=== PATIENT | female | born 1955 | race African-American/Black ===

== ENCOUNTER 2016-07-27 07:26 | Observation (INO) | payer MEDICAID ==
--- NOTE | 2016-07-27 08:48 | EDPRACDOC ---
- History of Present Illness HPI: HX OF CAD; STENT IN 2014; HERE WITH CP AND SHOB; WORSE WITH EXERTION. RELIEVED BY REST. NO RECENT STRESS OR CATH. NEW T WAVE INVERSION. <DexterNomi Dill - Last Filed: 07/27/16 11:30> - General Information Information Source: Patient Mode Of Arrival: Car - History of Present Illness Symptoms Started: days HPI: C/o productive cough (white), chest congestion and tightness, and swollen feet x 3 days. Chest tightness does not radiate. Denies fever, sob, N/V/D, sore throat. body aches, changes in urine or BM. Med hx= CAD with stent placed in 2014, asthma, HTN, DM, aortic valve disorder. +smoker. Symptoms: Reports: Cough Relevant History Of: Reports: Asthma Shortness of Breath: None Cough Frequency: Intermittent Cough Description: Reports: Productive Rhinorrhea: Reports: Clear Ear Symptoms: Reports: None Associated Signs and Symptoms: Reports: Cough <Chucky Price - Last Filed: 07/27/16 18:21> - General Information Stated Complaint: FOOT SWOLLEN/ CONGESTION Time Seen by Provider: 07/27/16 08:15 Home Medications: Home Medications Aripiprazole [Abilify] 15 mg PO DAILY 05/13/12 Latanoprost 1 drop OU HS 05/13/12 Levothyroxine [Synthroid, Levoxyl] 25 mcg PO DAILY 05/13/12 Omeprazole 40 mg PO DAILY 05/13/12 Cetirizine HCl 10 mg PO DAILY PRN 11/10/13 Aspirin [Aspirin EC] 81 mg PO DAILY 09/11/15 Cholecalciferol (Vitamin D3) [D3 Dots] 2,000 unit PO DAILY 09/11/15 Clopidogrel Bisulfate [Plavix] 75 mg PO DAILY 09/11/15 Losartan/Hydrochlorothiazide [Hyzaar 50-12.5 Tablet] 1 tab PO DAILY 09/11/15 [place]-3 Fatty Acids/Fish Oil [Fish Oil 1,000 mg Capsule] 2 cap PO BID 09/11/15 Atorvastatin Calcium [Lipitor] 80 mg PO HS 07/27/16 Montelukast Sodium [Singulair] 10 mg PO DAILY 07/27/16 Allergies/Adverse Reactions: Allergies Allergy/AdvReac Type Severity Reaction Status Date / Time No Known Allergies Allergy Verified 07/27/16 15:28 ED Past Medical History - History Reviewed Yes Nurses notes reviewed and agree except as marked - Patient Medical History Cardiac History: Reports: Hypertension, Syncope Musculoskeletal History: Reports: Arthritis Psychological History: Denies: Depression Surgical History: Denies: Hysterectomy - Social Medical History Smoking Status: Heavy tobacco smoker (5 or more cigarettes/day or daily pipe/ cigar) <Chucky Price - Last Filed: 07/27/16 18:21> EDM Review of Systems - Review of Systems ROS Negative Except as Marked: Yes All systems reviewed and were negative except as marked Respiratory: Cough Cardiovascular: Edema (bilat feet) <Chucky Price - Last Filed: 07/27/16 18:21> - Physical Exam Last recorded Vital Signs: Last Vital Signs Temp 98.8 F 07/27/16 08:03 Pulse 64 07/27/16 09:53 Resp 22 07/27/16 09:53 BP 166/74 07/27/16 09:53 Pulse Ox 97 07/27/16 09:53 Oxygen Pulse Oxygen Saturation 97 O2 Device Room Air Oxygen Flow Rate Fraction of Inspired Oxygen ( FIO2) <Nomi Renteria - Last Filed: 07/27/16 11:30> - Physical Exam Constitutional: No apparent distress, Alert Oriented to: Time, Person, Place Last recorded Vital Signs: Last Vital Signs Temp 98.8 F 07/27/16 08:03 Pulse 62 07/27/16 08:31 Resp 18 07/27/16 08:31 BP 212/84 H 07/27/16 08:31 Pulse Ox 97 07/27/16 08:31 Oxygen Pulse Oxygen Saturation 97 O2 Device Oxygen Flow Rate Fraction of Inspired Oxygen ( FIO2) - HEENT Head: Normal Eye Exam: negative: Conjunctival Injection, Scleral Icterus Oropharynx: negative: Drooling TMJ: Normal Nose: No Symptoms Reported Neck: Normal - Respiratory/Cardiovascular Respiratory: Rhonchi Cardiovascular: Normal - GI Auscultation: Normal Palpation: Normal Tenderness: Non tender - Musculoskeletal Back: Normal Extremities: Pedal Edema (bilat feet), Pedal Pulse, Radial Pulse - Integumentary Skin: Normal - Neurologic Mood Description: Normal Thought: Coherent Perception: Normal <Chucky Price - Last Filed: 07/27/16 18:21> - Results 07/27/16 09:15 07/27/16 09:15 WBC 11.6 xk/uL (3.8-10.8) H 07/27/16 09:15 RBC 3.71 xM/uL (4.20-5.40) L 07/27/16 09:15 Hgb 11.7 g/dL (12.0-16.0) L 07/27/16 09:15 Hct 35.4 % (36-47) L 07/27/16 09:15 MCV 95 fL (81-99) 07/27/16 09:15 MCH 31.4 pg (27-32) 07/27/16 09:15 MCHC 32.9 g/dl (33-36) L 07/27/16 09:15 RDW 15.4 % (11.5-14.5) H 07/27/16 09:15 Plt Count 281 xk/uL (130-400) 07/27/16 09:15 MPV 7.9 fL (7.4-10.4) 07/27/16 09:15 Neut % (Auto) 67.5 % (45-76) 07/27/16 09:15 Lymph % (Auto) 24.3 % (17-44) 07/27/16 09:15 [place] % (Auto) 6.8 % (3-10) 07/27/16 09:15 Eos % (Auto) 0.7 % (0-5) 07/27/16 09:15 Baso % (Auto) 0.7 % (0-2) 07/27/16 09:15 Absolute Neuts (auto) 7.77 xk/uL (1.7-8.2) 07/27/16 09:15 Absolute Lymphs (auto) 2.78 xk/uL (0.65-4.75) 07/27/16 09:15 Sodium 144 mEq/L (137-146) 07/27/16 09:15 Potassium 4.3 mEq/L (3.5-5.1) 07/27/16 09:15 Chloride 107 mEq/L (98-107) 07/27/16 09:15 Carbon Dioxide 32 mMOL/L (22-33) 07/27/16 09:15 Anion Gap 9 mEq/L (8-16) 07/27/16 09:15 BUN 16 MG/DL (7-17) 07/27/16 09:15 Creatinine 0.90 MG/DL (0.52-1.04) 07/27/16 09:15 Estimated GFR (MDRD) > 60 mL/min (>=60) 07/27/16 09:15 Glucose 93 MG/DL (70-99) 07/27/16 09:15 Calculated Osmolality 278 MOs/Kg (270-290) 07/27/16 09:15 Calcium 9.7 MG/DL (8.4-10.2) 07/27/16 09:15 Corrected Calcium 10.2 MG/DL (8.4-10.2) 07/27/16 09:15 Total Bilirubin 0.5 MG/DL (0.2-1.3) 07/27/16 09:15 AST 36 IU/L (14-36) 07/27/16 09:15 ALT 38 IU/L (9-52) 07/27/16 09:15 Alkaline Phosphatase 59 IU/L (55-165) 07/27/16 09:15 Troponin I < 0.01 ng/mL (<.04) 07/27/16 09:15 Bhw-N-Mdjcgnpzpcf Pept 1300 pg/mL (0-900) H 07/27/16 09:15 Total Protein 6.4 G/DL (6.3-8.2) 07/27/16 09:15 Albumin 3.5 G/DL (3.5-5.0) 07/27/16 09:15 Lab Results 07/27/16 07/27/16 09:15 09:15 WBC 11.6 H RBC 3.71 L Hgb 11.7 L Hct 35.4 L MCV 95 MCH 31.4 MCHC 32.9 L RDW 15.4 H Plt Count 281 MPV 7.9 Neut % (Auto) 67.5 Lymph % (Auto) 24.3 [place] % (Auto) 6.8 Eos % (Auto) 0.7 Baso % (Auto) 0.7 Absolute Neuts (auto) 7.77 Absolute Lymphs (auto) 2.78 Sodium 144 Potassium 4.3 Chloride 107 Carbon Dioxide 32 Anion Gap 9 BUN 16 Creatinine 0.90 Estimated GFR (MDRD) > 60 Glucose 93 Calculated Osmolality 278 Calcium 9.7 Corrected Calcium 10.2 Total Bilirubin 0.5 AST 36 ALT 38 Alkaline Phosphatase 59 Troponin I < 0.01 Tix-P-Aaewugtineu Pept 1300 H Total Protein 6.4 Albumin 3.5 <Nomi Renteria - Last Filed: 07/27/16 11:30> - Results 07/27/16 09:15 07/27/16 09:15 - EKG EKG #1 EKG Time: 08:43 -: Yes EKG interpreted by me Rate: bpm: 60 Rhythm: NSR (8:43) Block: RBBB ST: Ischemia Comments: inferolateral T wave inversions Comparison: 02/09/16 (no inferolateral t wave inversions) - Diagnostic Imaging Chest Image interpreted by: Radiologist EXAM: CHEST 2 VIEW COMPARISON: 02/09/2016 FINDINGS: Cardiomediastinal silhouette is stable. No acute infiltrate or pleural effusion. No pulmonary edema. Bony thorax is unremarkable. IMPRESSION: No active cardiopulmonary disease. Electronically Signed By: Craig Tellez M.D. On: 07/27/2016 09:03 <Chucky Price - Last Filed: 07/27/16 18:21> - Departure Disposition: Admit IP To This Hospital Decision to Admit Time: 11:13 (SANG) Decision to admit date: 07/27/16 Decision to admit: from ED <Nomi Renteria - Last Filed: 07/27/16 11:30> - Departure Disposition: Home Education/Counseling Given To: Patient Education/Counseling Given Regarding: Diagnosis, Treatment, Prognosis, Follow Up <Chucky rPice - Last Filed: 07/27/16 18:21> - Departure Condition: Stable Final Diagnosis: ANGINA, ACS, EKG CHANGES
--- NOTE | 2016-07-27 09:06 | DIRPT ---
CLINICAL DATA: Shortness of breath, cough EXAM: CHEST 2 VIEW COMPARISON: 02/09/2016 FINDINGS: Cardiomediastinal silhouette is stable. No acute infiltrate or pleural effusion. No pulmonary edema. Bony thorax is unremarkable. IMPRESSION: No active cardiopulmonary disease. Electronically Signed By: Craig Tellez M.D. On: 07/27/2016 09:03
[2016-07-27 09:24] LABS: AUTOMATED BASOPHIL 0.7 % (0-2); AUTOMATED EOSINOPHIL 0.7 % (0-5); AUTOMATED LYMPH 24.3 % (17-44); AUTOMATED MONOCYTE 6.8 % (3-10); AUTOMATED NEUTROPHIL 67.5 % (45-76); MPV 7.9 fL (7.4-10.4)
[2016-07-27 09:36] LABS: BLOOD UREA NITROGEN 16 MG/DL (7-17); CALC CORRECTED 10.2 MG/DL (8.4-10.2); CALCIUM 9.7 MG/DL (8.4-10.2); CALCULATED OSMOLALITY 278 MOs/Kg (270-290); CHLORIDE 107 mEq/L (98-107); GLUCOSE 93 MG/DL (70-99); SODIUM LEVEL 144 mEq/L (137-146); TOTAL PROTEIN 6.4 G/DL (6.3-8.2)
--- NOTE | 2016-07-27 11:27 | PCM.CARDCO ---
Consultation Date: 07/27/16 Requesting Physician: Nomi Renteria [employer] Agent: Paulino Klein Consult Reason: Chest Pain - History of Present Illness Patient is a 61 years old woman with past medical history significant for longstanding hypertension, diabetes, dyslipidemia, smoking, coronary artery disease in 2014 she had stent to circumflex artery. She presented to the hospital with chief complain fever chills starting Saturday which was 3 days ago she also complained of having persistent chest heaviness since Saturday. There is also some shortness of breath cough with yellowish sputum. She also noted some swelling of lower extremities. My evaluation was called to address issue of chest pain as well as abnormal electrocardiogram. Her ability to exercise is limited because of shortness of breath that she gets easily. - Past Medical and Surgical History Cardiac History: Reports: Coronary Artery Disease (PTCA and stenting of the circumflex artery in 2014.), Hypertension, Cardiac Catheterization, Syncope Musculoskeletal History: Reports: Arthritis Psychological History: Denies: Depression Past Surgical History: Denies: Hysterectomy Allergies No Known Allergies Allergy (Verified 07/27/16 08:03) Home Medications Aripiprazole [Abilify] 15 mg PO DAILY 05/13/12 Latanoprost 1 drop OU HS 05/13/12 Levothyroxine [Synthroid, Levoxyl] 25 mcg PO DAILY 05/13/12 Omeprazole 40 mg PO DAILY 05/13/12 Cetirizine HCl 10 mg PO DAILY PRN 11/10/13 Aspirin [Aspirin EC] 81 mg PO DAILY 09/11/15 Cholecalciferol (Vitamin D3) [D3 Dots] 2,000 unit PO DAILY 09/11/15 Clopidogrel Bisulfate [Plavix] 75 mg PO DAILY 09/11/15 Losartan/Hydrochlorothiazide [Hyzaar 50-12.5 Tablet] 1 tab PO DAILY 09/11/15 [place]-3 Fatty Acids/Fish Oil [Fish Oil 1,000 mg Capsule] 2 cap PO DAILY Atorvastatin Calcium [Lipitor] 80 mg PO HS 07/27/16 Meloxicam [Mobic] 15 mg PO DAILY PRN 07/27/16 Montelukast Sodium [Singulair] 10 mg PO HS 07/27/16 - Social History Travel Outside of [place] in the Last 3 Months?: No Smoking Status: Heavy tobacco smoker (5 or more cigarettes/day or daily pipe/ cigar) - Physical Exam Constitutional: No apparent distress, Alert Oriented to: Time, Person, Place Exam: Last Vital Signs Temp 98.8 F 07/27/16 08:03 Pulse 69 07/27/16 11:06 Resp 20 07/27/16 11:06 BP 135/62 07/27/16 11:06 Pulse Ox 96 07/27/16 11:06 Intake & Output 07/26/16 07/27/16 07/27/16 23:59 07:59 15:59 Patient's weight 70.76 kg - HEENT Head: Normal Eye: negative: Conjunctival Injection, Scleral Icterus Oropharynx: negative: Drooling TMJ: Normal Nose: No Symptoms Reported - Respiratory/Cardiovascular Respiratory: Rhonchi - GI Auscultation: Normal Palpation: Normal Tenderness: Non tender - Musculoskeletal Back: Normal Extremities: Pedal Edema (bilat feet), Pedal Pulse, Radial Pulse - Integumentary Skin: Normal - Neurologic Mood Description: Normal Thought: Coherent Perception: Normal - Other Exam Other Exam Findings: General Appearance: Well developed. Well nourished. In no acute distress. Lungs: Chest was not overinflated. Bilateral rhonchi. Cardiovascular: Jugular Venous Distention: JVD not increased. Heart Rate And Rhythm: Normal. Heart Sounds: Normal. Murmurs: No murmurs were heard. Carotid Arteries: Carotid pulses were normal. No bruit in the carotid artery. Edema: Not present. Lower extremities pulses normal (including femoral popliteal and dorsalis pedis) . Minimal swelling. Musculoskeletal System: General/bilateral: No cyanosis of the fingers. Neurological: Oriented to time, place, and person. Nails: No clubbing of the fingernails. - Lab Results Laboratory Tests 07/27/16 07/27/16 09:15 09:15 WBC 11.6 H RBC 3.71 L Hgb 11.7 L Hct 35.4 L MCV 95 MCH 31.4 MCHC 32.9 L RDW 15.4 H Plt Count 281 MPV 7.9 Neut % (Auto) 67.5 Lymph % (Auto) 24.3 [place] % (Auto) 6.8 Eos % (Auto) 0.7 Baso % (Auto) 0.7 Absolute Neuts (auto) 7.77 Absolute Lymphs (auto) 2.78 Sodium 144 Potassium 4.3 Chloride 107 Carbon Dioxide 32 Anion Gap 9 BUN 16 Creatinine 0.90 Estimated GFR (MDRD) > 60 Glucose 93 Calculated Osmolality 278 Calcium 9.7 Corrected Calcium 10.2 Total Bilirubin 0.5 AST 36 ALT 38 Alkaline Phosphatase 59 Troponin I < 0.01 Cfn-E-Gpmanilvcvf Pept 1300 H Total Protein 6.4 Albumin 3.5 - Diagnostic Findings Electrocardiogram showed normal sinus rhythm, normal P interval, right bundle branch block, T inversion in lead V3 to V6 as well as inferior leads. - Assessment/Plan (1) Atypical chest pain R07.89 - OTHER CHEST PAIN Acute Present on Admission: Yes Comment: It is a continue sensation since Saturday that been going on for 3 day Not aggravated by exercise not relieved by rest. The truth is that she does have changes on the electrocardiogram however biochemical markers are normal. Obviously she need to be admitted she need to be put on aspirin Lovenox. Will continue monitoring her cardiac enzymes. I will also ask her to have an echocardiogram done to check left ventricle ejection fraction. (2) Coronary artery disease I25.10 - ATHSCL HEART DISEASE OF [place] CORONARY ARTERY W/O ANG PCTRS Chronic Present on Admission: Yes lime artery N A Comment: Symptoms of very atypical however appropriate course of action would be to collect cardiac enzymes as well as troponin I. Will put her on appropriate medication and watch for signs and symptoms of myocardial infarction. Future recommendation will be made based on results of that observation. (3) Diabetes mellitus E11.9 - TYPE 2 DIABETES MELLITUS WITHOUT COMPLICATIONS Chronic Present on Admission: Yes D D D D P D D L C Comment: It will be managed by Internal Medicine team. (4) Dyslipidemia E78.5 - HYPERLIPIDEMIA, UNSPECIFIED Acute Comment: She is on statin I will continue. (5) Essential hypertension I10 - ESSENTIAL (PRIMARY) HYPERTENSION Acute Comment: Will be control with all medications. (6) Smoking F17.200 - NICOTINE DEPENDENCE, UNSPECIFIED, UNCOMPLICATED Acute Comment: Obviously she must quit. I had a long discussion with her regarding that issue. Plan: Lady presented to the hospital with atypical chest pain as well as some shortness of breath. Her electrocardiogram does have some new changes. She be admitted to the hospital rule out echocardiogram will be done and then decision will be made regarding evaluation of her coronary arteries. She may required stress test before going home. On top of that she complained of having some chills and fever which happened last Nay she does have a lot of rhonchi I am worried there is some infectious process going on as well.
[2016-07-27] MEDS ORDERED: Enoxaparin 1 mg per kg per dose SQ ONE (11:28)
[2016-07-27] MEDS ORDERED: NITROGLYCERINE 2 % OINTMENT PACK TOP ONE (11:28)
[2016-07-27] MEDS ORDERED: ASPIRIN 325 MG TAB PO ONE (11:28)
[2016-07-27] MEDS ORDERED: METOPROLOL TARTRATE 25 MG TAB PO ONE (11:28)
[2016-07-27] MEDS ORDERED: CEFTRIAXONE 1 GM in D5W 100 ML IV ONE (11:38)
[2016-07-27] MEDS ORDERED: ENOXAPARIN 80 MG/0.8 ML PFS SQ ONE (12:00)
[2016-07-27] MEDS ORDERED: CETIRIZINE HCL 10 MG TAB PO PRN (12:27)
[2016-07-27] MEDS ORDERED: NITROGLYCERINE 0.4 MG TAB SL PRN (12:29)
--- NOTE | 2016-07-27 12:35 | HISTPHYS ---
- Chief Complaint pt reports increased bilateral foot swellling with cough and congestion, with white thick sputum - History of Present Illness Patient is a 61 years old woman with past medical history significant for longstanding hypertension, diabetes, dyslipidemia, smoking, coronary artery disease in 2014 she had stent to circumflex artery. She presented to the hospital with chief complain fever chills starting Saturday which was 3 days ago she also complained of having persistent chest heaviness since Saturday. There is also some shortness of breath cough with yellowish sputum. She also noted some swelling of lower extremities. Evaluation was called to address issue of chest pain as well as abnormal electrocardiogram. Her ability to exercise is limited because of shortness of breath that she gets easily. She was seen in the emergency department in consultation by Dr. DOMÍNGUEZ who felt that while she may have some chest discomfort and she does have an abnormal EKG she would benefit from observation to rule out myocardial infarction but she would also need treatment for her bacterial bronchitis. I was asked to admit the patient. C/o productive cough (white), chest congestion and tightness, and swollen feet x 3 days. Chest tightness does not radiate. Denies fever, sob, N/V/D, sore throat. body aches, changes in urine or BM. Med hx= CAD with stent placed in 2014, asthma, HTN, DM, aortic valve disorder. +smoker. Symptoms: Reports: Cough Relevant History Of: Reports: Asthma Shortness of Breath: None Cough Frequency: Intermittent Cough Description: Reports: Productive Rhinorrhea: Reports: Clear Ear Symptoms: Reports: None Associated Signs and Symptoms: Reports: Cough - Medical History Cardiac History: Reports: Hypertension, Syncope Respiratory History: Reports: Bronchitis Musculoskeletal History: Reports: Arthritis Psychological History: Denies: Depression - Surgical History Denies: Hysterectomy - Medictions/Allergies Allergies No Known Allergies Allergy (Verified 07/27/16 08:03) Current Medication List: Reviewed Home Medications Aripiprazole [Abilify] 15 mg PO DAILY 05/13/12 Latanoprost 1 drop OU HS 05/13/12 Levothyroxine [Synthroid, Levoxyl] 25 mcg PO DAILY 05/13/12 Omeprazole 40 mg PO DAILY 05/13/12 Cetirizine HCl 10 mg PO DAILY PRN 11/10/13 Aspirin [Aspirin EC] 81 mg PO DAILY 03/13/16 Cholecalciferol (Vitamin D3) [D3 Dots] 2,000 unit PO DAILY 09/11/15 Clopidogrel Bisulfate [Plavix] 75 mg PO DAILY 09/11/15 Losartan/Hydrochlorothiazide [Hyzaar 50-12.5 Tablet] 1 tab PO DAILY 09/11/15 [place]-3 Fatty Acids/Fish Oil [Fish Oil 1,000 mg Capsule] 2 cap PO DAILY Atorvastatin Calcium [Lipitor] 80 mg PO HS 07/27/16 Meloxicam [Mobic] 15 mg PO DAILY PRN 07/27/16 Montelukast Sodium [Singulair] 10 mg PO HS 07/27/16 - Family History Reports: No Significant History - Social History Travel Outside of [place] in the Last 3 Months?: No Smoking Status: Heavy tobacco smoker (5 or more cigarettes/day or daily pipe/ cigar) Social History: Denies: Alcohol Use - Review of Systems Constitutional: Chills, Fever, Fatigue Eyes: No Symptoms Reported (No blurry vision, visual changes, eye pain, or eye redness.) Ears: No Symptoms Reported (No ear pain or discharge) Nose: No Symptoms Reported (No nasal discharge/congestion or bleeding) Mouth: No Symptoms Reported (No oropharyngeal lesions or erythema) Respiratory: Cough, Shortness of Breath, Dyspnea. negative: Hemoptysis, Pleurisy Cardiovascular: Chest Pain. negative: Orthopnea, Palpitations, PND, Syncope Gastrointestinal: No Symptoms Reported (No abdominal pain, nausea, vomiting, diarrhea, constipation, or bloody stool.) Genitourinary: No Symptoms Reported (No dysuria or hematuria.) Neurological: No Symptoms Reported (No headache, dizziness, seizures, or focal weakness.) Musculoskeletal:: No Symptoms Reported Integumentary: No Symptoms Reported (no rashes or lesions) Allergic/Immunologic: No Symptoms Reported (no rashes or lesions) Hematologic: No Symptoms Reported (No chronic anemia, bleeding, or easy bruising.), Other (Lymphatics- no lymph node swelling or pain.) Endocrine: No Symptoms Reported (No thyroid issues, polyuria, or polydipsia.) Psychiatric: No Symptoms Reported (Fully oriented, with normal and appropriate affect.) - Physical Exam Vital Signs: Initial Vitals Temperature 98.8 F 07/27/16 08:03 Pulse Rate 64 07/27/16 08:03 Respiratory Rate 18 07/27/16 08:03 Blood Pressure 186/88 H 07/27/16 08:03 Pulse Oxygen Saturation 96 07/27/16 08:03 Constitutional: No apparent distress, Alert, Well nourished, Well appearing. negative: Confused, Distress Oriented to: Time, Person, Place - HEENT Head: Normal (normocephalic, atraumatic.), Other (No cervical lymphadenopathy. No supraclavicular lymphadenopathy. Neck: No palpable mass, supple , trachea midline.) Eye: Normal (pupils equal, reactive to light, and round; EOMI, Sclera white) Oropharynx: Normal (Pharynx: Moist without exudate,Gums-no swelling, No oropharyngeal lesions or erythema, Mucous membranes are dry.) Nose: No Symptoms Reported (septum midline, Nares patent, without discharge or bleeding.) Respiratory: Diminished, Rhonchi. negative: Rales, Wheezes Cardiovascular: Normal (RRR , Normal S1, S2. No murmurs, rubs, or gallops. PMI non-displaced. Carotids: no carotid bruits. No bradycardia or tachycardia. DP pulses 2+ bilaterally.) - GI Auscultation: Normal (normal active sounds) Palpation: Normal (Soft,non distended,nontender. No hepatosplenomegaly.) Tenderness: Non tender (No rebound or guarding) Chaudhari's Sign: Negative - Musculoskeletal Back: Normal (Non-Tender) Extremities: Normal (Normal tone, DP pulses 2+ bilaterally, No cyanosis or edema bilaterally, FROM bilaterally.) - Integumentary Skin: Normal (Clean, dry, and intact. No rashes. No lesions.) Lymphatics: Normal (No cervical lymphadenopathy. No supraclavicular lymphadenopathy.) - Neurologic Memory Impaired: Normal Motor Function: Normal (Motor 5/5 throughout.Normal tone, Pulses 2+ No cyanosis or edema, FROM) Cranial Nerve: Normal (CN II-XII intact sensation, strength 5/5) Cerebellar: Normal (Babinski: toes downgoing bilaterally. Intact Finger to nose. Sensory grossly intact to light touch. Intact rapid alternating movements bilaterally. No pronator drift.) Mood Description: Normal (Fully oriented. Normal and appropriate affect.) Perception: Normal (Normal and appropriate affect.) - Focused CV Perfusion Exam Vital Signs: Last Vital Signs Temp 98.8 F 07/27/16 08:03 Pulse 72 07/27/16 12:31 Resp 18 07/27/16 12:31 BP 156/81 07/27/16 12:31 Pulse Ox 96 07/27/16 12:31 - Diagnostic Findings EKG shows normal sinus rhythm with normal P interval right bundle-branch block T -wave inversion in V3 to V6 as well as inferior leads. Personally viewed by me. CHEST 2 VIEW COMPARISON: 02/09/2016 FINDINGS: Cardiomediastinal silhouette is stable. No acute infiltrate or pleural effusion. No pulmonary edema. Bony thorax is unremarkable. IMPRESSION: No active cardiopulmonary disease. Electronically Signed By: Craig Tellez M.D. On: 07/27/2016 09:03 - Assessment (1) Acute bacterial bronchitis J20.8 - ACUTE BRONCHITIS DUE TO OTHER SPECIFIED ORGANISMS; B96.89 - OTH BACTERIAL AGENTS THE CAUSE OF DISEASES CLASSD [id number] Acute Present on Admission: Yes Patient be admitted into observation status will start Augmentin 875 p.o. twice daily and monitor her respiratory status closely. Will also add Mucinex. (2) Atypical chest pain R07.89 - OTHER CHEST PAIN Acute Present on Admission: Yes Chest pain certainly is atypical in the sensation has been present since Saturday. He does not get aggravated by exercise. It is not relieved by rest. Given changes on the EKG with normal biological markers observation is called for. Will continue aspirin and Lovenox monitor cavity act enzymes and determine need for stress testing in the near future. (3) Coronary artery disease I25.10 - ATHSCL HEART DISEASE OF [place] CORONARY ARTERY W/O ANG PCTRS Chronic Qualifiers: Coronary Disease-Associated Artery/Lesion type: [place] artery [place] vs. transplanted heart: [place] heart Associated angina: with unstable angina Qualified Code(s): I25.110 - Atherosclerotic heart disease of [place] coronary artery with unstable angina pectoris Rule out for myocardial infarction follow serial enzymes and EKGs. (4) Diabetes mellitus E11.9 - TYPE 2 DIABETES MELLITUS WITHOUT COMPLICATIONS Chronic Present on Admission: Yes Qualifiers: Diabetes mellitus type: type 2 Diabetes mellitus complication status: with circulatory complication Diabetes mellitus complication detail: with other circulatory complications Diabetic retinopathy severity: D Proliferative retinopathy type: P Diabetes mellitus macular edema: D Diabetes mellitus medical terminologist insulin use: with jail use Laterality: L Chronic kidney disease stage: C Qualified Code(s): E11.59 - Type 2 diabetes mellitus with other circulatory complications; Z79.4 - manager long term care (current) use of insulin Continue home care. (5) Dyslipidemia E78.5 - HYPERLIPIDEMIA, UNSPECIFIED Chronic Present on Admission: Yes Continue home medication regimen and monitor closely check lipid profile in a.m.. (6) Smoking F17.200 - NICOTINE DEPENDENCE, UNSPECIFIED, UNCOMPLICATED Chronic Present on Admission: Yes Patient is an active smoker. (7) Tobacco abuse Z72.0 - TOBACCO USE Chronic Present on Admission: Yes Smoking cessation counseling for less than 6 minutes. - Plan Observation status, rule out myocardial infarction, determine need for stress test in near future. Case Care Discussed with: Patient, Family Total Time: 55 minutes Critical Care: No Couseling Time (>50% in counseling/coordination): No
[2016-07-27] MEDS ORDERED: Enoxaparin Treatment Dose per Pharmacy SQ SCH (13:00)
[2016-07-27] MEDS ORDERED: Pharmacy Order Set Alert SCH (13:00)
[2016-07-27] MEDS ORDERED: LATANOPROST 0.005% OPHTH SOLN 2.5 ML OU SCH (13:00)
[2016-07-27] MEDS ORDERED: AMOXICILLIN/CLAVULANATE 875 MG TAB PO ONE (13:00)
[2016-07-27] MEDS: METOPROLOL TARTRATE 25 MG TAB PO SCH ×2 (14:00→21:10)
[2016-07-27] MEDS ORDERED: FUROSEMIDE 40 MG/4 ML VIAL IV ONE (16:57)
[2016-07-27] MEDS ORDERED: Vaccine Screening Complete SCH (17:00)
[2016-07-27] MEDS: AMOXICILLIN/CLAVULANATE 875 MG TAB PO SCH (17:14)
[2016-07-27] MEDS: MONTELUKAST SODIUM 10 MG TAB PO SCH (21:10)
[2016-07-27] MEDS: ATORVASTATIN 80 MG TAB PO SCH (21:10)
[2016-07-27] MEDS: LATANOPROST 0.005% OPHTH SOLN 2.5 ML OU SCH (21:11)
[2016-07-27] MEDS: ENOXAPARIN 80 MG/0.8 ML PFS SQ SCH (21:11)
[2016-07-27] MEDS ORDERED: ENOXAPARIN 40 MG/0.4 ML PFS SQ SCH (23:00)
[2016-07-28 03:41] LABS: LDL (calc.) 82.2 MG/DL (<100); VLDL (calc.) 36.8 MG/DL (5-40)
[2016-07-28] MEDS: PANTOPRAZOLE 40 MG TAB PO SCH (04:37)
[2016-07-28] MEDS ORDERED: MELOXICAM 7.5 MG TAB PO PRN (08:00)
[2016-07-28] MEDS ORDERED: SODIUM CHLORIDE 0.9% 10 ML FLUSH FLUSH ONE (08:00)
[2016-07-28] MEDS: METOPROLOL TARTRATE 25 MG TAB PO SCH ×2 (08:40→20:24)
[2016-07-28] MEDS ORDERED: LOSARTAN KCL/HCTZ 50-12.5 TAB PO SCH (09:00)
[2016-07-28] MEDS ORDERED: PERFLUTREN LIPID MICROSPHERE 1.5 ML VIAL IV ONE (10:00)
--- NOTE | 2016-07-28 10:23 | PCM.CARD ---
- Subjective Reason for visit: Follow up chest pain Denies having chest pain but coughs a lot. No shortness of breath. Vital Signs: Last Vital Signs Temp 98.2 F 07/28/16 08:23 Pulse 61 07/28/16 08:23 Resp 17 07/28/16 08:23 BP 160/72 07/28/16 08:23 Pulse Ox 98 07/28/16 08:23 PE: General Appearance: Well developed. Well nourished. In no acute distress. Lungs: Chest was not overinflated. Clear to auscultation. Few rhonchi bilaterally. Cardiovascular: Jugular Venous Distention: JVD not increased. Heart Rate And Rhythm: Normal. Heart Sounds: Normal. Murmurs: No murmurs were heard. Carotid Arteries: Carotid pulses were normal. No bruit in the carotid artery. Edema: Not present. Lower extremities pulses normal (including femoral popliteal and dorsalis pedis) . Musculoskeletal System: General/bilateral: No cyanosis of the fingers. Neurological: Oriented to time, place, and person. Nails: No clubbing of the fingernails. Lab/DI Results Reviewed: Laboratory Results - last 24 hr 07/27/16 07/28/16 16:10 02:41 Glucose 102 H Troponin I < 0.01 Triglycerides 184 H Cholesterol 167 LDL Cholesterol, Calc 82.2 VLDL Cholesterol, Calc 36.8 HDL Cholesterol 48.0 Cholesterol/HDL Ratio 3.5 - Assessment/Plan (1) Atypical chest pain Acute R07.89 - OTHER CHEST PAIN Present on Admission: Yes Comment/Plan: Denies having any now. So far biochemical markers are normal. Worrisome finding on her electrocardiogram she does have diffuse symmetrical T inversion in inferior lateral leads. I will try to see effect in find some all EKG in my office. I would like to compare to see those changes are new or old. She did have a problem with circumflex artery for an angioplasty of this artery. (2) Coronary artery disease Chronic I25.10 - ATHSCL HEART DISEASE OF [place] CORONARY ARTERY W/O ANG PCTRS Present on Admission: Yes [place] artery [place] heart with unstable angina I25.110 - Atherosclerotic heart disease of [place] coronary artery with unstable angina pectoris Comment/Plan: Discussion as above on appropriate medication will continue. She may required stress test before getting out of the hospital however with her amount of cough she is having now I can't imagine her lying still on the table to have a stress test done. Will wait until she improves from respiratory point of view. (3) Diabetes mellitus Chronic E11.9 - TYPE 2 DIABETES MELLITUS WITHOUT COMPLICATIONS Present on Admission: Yes type 2 with circulatory complication with other circulatory complications D P D with usp use L C E11.59 - Type 2 diabetes mellitus with other circulatory complications; Z79.4 - truck terminal manager (current) use of insulin Comment/Plan: Follow up by Internal Medicine team. (4) Dyslipidemia Chronic E78.5 - HYPERLIPIDEMIA, UNSPECIFIED Present on Admission: Yes Comment/Plan: On appropriate medications with reasonably controlled cholesterol. (5) Essential hypertension Acute I10 - ESSENTIAL (PRIMARY) HYPERTENSION Comment/Plan: Still not adequately controlled. Will add NAHID-inhibitor to her medical regimen. (6) Smoking Chronic F17.200 - NICOTINE DEPENDENCE, UNSPECIFIED, UNCOMPLICATED Present on Admission: Yes Comment/Plan: Obviously a problem she needs to quit. - Plan Lady with coronary artery disease in history, atypical chest pain but does have some changes on the electrocardiogram I will try to review her record my office to see however her prior electrocardiogram look like she does have symmetrical T inversion in lateral leads.
[2016-07-28] MEDS ORDERED: LOSARTAN POTASSIUM 50 MG TAB PO ONE (10:32)
[2016-07-28] MEDS ORDERED: LISINOPRIL 2.5 MG TAB PO SCH (11:00)
[2016-07-28] MEDS: DOBUTamine 500,000 MCG/250 ML RTU IV ONE (12:15)
[2016-07-28] MEDS: ARIPIPRAZOLE 10 MG TAB PO SCH (12:35)
[2016-07-28] MEDS: AMOXICILLIN/CLAVULANATE 875 MG TAB PO SCH ×2 (12:36→17:43)
[2016-07-28] MEDS: LEVOTHYROXINE 25 MCG (0.025 MG) TAB PO SCH (12:36)
[2016-07-28] MEDS: CLOPIDOGREL 75 MG TAB PO SCH (12:36)
[2016-07-28] MEDS: ENOXAPARIN 80 MG/0.8 ML PFS SQ SCH ×2 (12:37→20:27)
[2016-07-28] MEDS: OMEGA-3-ACID ETHYL ESTERS 1000 MG CAP PO SCH (12:37)
[2016-07-28] MEDS: CHOLECALCIFEROL 1000 UNITS TAB PO SCH (12:37)
[2016-07-28] MEDS ORDERED: TUSSIONEX 5 ML ORAL SYRINGE PO SCH (13:00)
--- NOTE | 2016-07-28 14:24 | GENMEDPROG ---
Subjective Note: 61-year-old female admitted to our facility due to congestion cough and pains in chest. She has significant amount of rhonchi and is felt to have bacterial bronchitis. Notes Reviewed: Yes Events from last night noted and discussed with Clinical Staff Currently: Reports: Cough, Wheezing, [place], SOB. Denies: Abdominal Pain, Fever/ Chills DVT Prophylaxis: Yes - Physical Examination Vital Signs and I&O: Last Vital Signs Temp 98.1 F 07/28/16 11:53 Pulse 58 L 07/28/16 11:53 Resp 18 07/28/16 11:53 BP 160/74 07/28/16 11:53 Pulse Ox 98 07/28/16 11:53 Oxygen Pulse Oxygen Saturation 98 O2 Device Room Air Oxygen Flow Rate Fraction of Inspired Oxygen ( FIO2) Intake & Output 07/25/16 07/26/16 07/27/16 07/28/16 23:59 23:59 23:59 23:59 Intake Total 530 240 Output Total 2250 1300 Balance -1720 -1060 Patient's weight 74.021 kg 74.48 kg General: Alert, Oriented x3, No acute distress, Well appearing, Well nourished Lymphatics: Normal (No lymph node swelling or pain.) Respiratory: Rhonchi. negative: Accessory Muscle Use, Rales, Retractions, Tachypnea, Wheezes, Excursion Cardiovascular: Regular rate and rhythm (No bradycardia or tachycardia), Normal S1, No Gallops,Rubs/Murmurs, Normal S2, Good Pedal Pulses (DP pulses 2+ bilaterally) GI: Normal bowel sounds (normal active sounds), Soft (non-distended), Non tender , No hepatospenomegaly, No masses Extremities/Musculoskeletal: Normal pulses (DP pulses 2+ bilaterally) Skin: Warm,Dry and Intact, No rashes, No significant lesion Neurological: Strength at 5/5 X4 ext (Motor 5/5 throughout.), Normal tone, Cranial nerves 3-12 NL ( 2-12 grossly intact.) Lab/DI/Studies Reviewed: Abnormal Lab Results 07/28/16 02:41 Glucose 102 H Triglycerides 184 H - Assessment (1) Acute bacterial bronchitis Acute J20.8 - ACUTE BRONCHITIS DUE TO OTHER SPECIFIED ORGANISMS; B96.89 - OTH BACTERIAL AGENTS THE CAUSE OF DISEASES CLASSD ELSWHR Comment/Plan: Patient be admitted into observation status will start Augmentin 875 p.o. twice daily and monitor her respiratory status closely. Will also add Mucinex. Add Tussionex as well (2) Atypical chest pain Acute R07.89 - OTHER CHEST PAIN Comment/Plan: Chest pain certainly is atypical in the sensation has been present since Saturday. SHe does not get aggravated by exercise. It is not relieved by rest. Given changes on the EKG with normal biological markers observation is called for. Will continue aspirin and Lovenox monitor cavity act enzymes and plan stress testing prior to discharge. (3) Coronary artery disease Chronic I25.10 - ATHSCL HEART DISEASE OF [place] CORONARY ARTERY W/O ANG PCTRS Qualifiers: Coronary Disease-Associated Artery/Lesion type: [place] artery [place] vs. transplanted heart: [place] heart Associated angina: with unstable angina Qualified Code(s): I25.110 - Atherosclerotic heart disease of [place] coronary artery with unstable angina pectoris Comment/Plan: Rule out for myocardial infarction follow serial enzymes and EKGs. 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 (5) Dyslipidemia Chronic E78.5 - HYPERLIPIDEMIA, UNSPECIFIED Comment/Plan: Continue home medication regimen and monitor closely check lipid profile in a.m.. (6) Smoking Chronic F17.200 - NICOTINE DEPENDENCE, UNSPECIFIED, UNCOMPLICATED Comment/ Plan: Patient is an active smoker. (7) Tobacco abuse Chronic Z72.0 - TOBACCO USE Comment/Plan: Smoking cessation counseling for less than 6 minutes. - Plan Observation status, rule out myocardial infarction, determine need for stress test in near future. Disposition Plan: Hopefully home soon Case Care Discussed with: Patient, Nursing Staff Education/Counseling Given To: Patient Education/Counseling Given Regarding: Diagnosis, Treatment, Prognosis, Follow Up , Disposition Plan Total Time: 45 minutes
[2016-07-28] MEDS: GUAIFENESIN-DEXTROMETHORPHAN LA TAB PO SCH ×2 (15:42→20:24)
[2016-07-28] MEDS: MONTELUKAST SODIUM 10 MG TAB PO SCH (20:24)
[2016-07-28] MEDS: ATORVASTATIN 80 MG TAB PO SCH (20:24)
[2016-07-28] MEDS: LATANOPROST 0.005% OPHTH SOLN 2.5 ML OU SCH (20:26)
[2016-07-28] MEDS: TUSSIONEX 5 ML ORAL SYRINGE PO SCH (20:36)
[2016-07-29 04:46] VITALS: BMI 29.1
[2016-07-29] MEDS: PANTOPRAZOLE 40 MG TAB PO SCH (04:54)
[2016-07-29 07:37] LABS: AUTOMATED BASOPHIL 0.3 % (0-2); AUTOMATED EOSINOPHIL 0.8 % (0-5); AUTOMATED MONOCYTE 8.3 % (3-10); AUTOMATED NEUTROPHIL 63.6 % (45-76)
[2016-07-29 07:58] LABS: BLOOD UREA NITROGEN 18 MG/DL (7-17); CALCIUM 9.8 MG/DL (8.4-10.2); CALCULATED OSMOLALITY 275 MOs/Kg (270-290); CHLORIDE 101 mEq/L (98-107); GLUCOSE 98 MG/DL (70-99); SODIUM LEVEL 142 mEq/L (137-146)
[2016-07-29] MEDS ORDERED: HYDROCHLOROTHIAZIDE 12.5 MG CAP PO SCH (09:00)
[2016-07-29] MEDS ORDERED: LOSARTAN POTASSIUM 50 MG TAB PO SCH (09:00)
[2016-07-29] MEDS: PERFLUTREN LIPID MICROSPHERE 1.5 ML VIAL IV ONE ×2 (09:17→10:41)
[2016-07-29] MEDS: DOBUTamine 500,000 MCG/250 ML RTU IV ONE ×4 (09:25→09:35)
--- NOTE | 2016-07-29 09:54 | PCM.CARD ---
- Subjective Reason for visit: Follow-up atypical chest pain, abnormal electrocardiogram Doing well, wants to go home. Much less cough today. Vital Signs: Last Vital Signs Temp 98.0 F 07/29/16 04:00 Pulse 53 L 07/29/16 07:40 Resp 18 07/29/16 04:00 BP 145/67 07/29/16 04:00 Pulse Ox 94 07/29/16 04:00 PE: General Appearance: Well developed. Well nourished. In no acute distress. Lungs: Chest was not overinflated. Clear to auscultation. Few rhonchi. Cardiovascular: Jugular Venous Distention: JVD not increased. Heart Rate And Rhythm: Normal. Heart Sounds: Normal. Murmurs: No murmurs were heard. Carotid Arteries: Carotid pulses were normal. No bruit in the carotid artery. Edema: Not present. Lower extremities pulses normal (including femoral popliteal and dorsalis pedis) . Musculoskeletal System: General/bilateral: No cyanosis of the fingers. Neurological: Oriented to time, place, and person. Nails: No clubbing of the fingernails. Lab/DI Results Reviewed: Laboratory Results - last 24 hr 07/29/16 07/29/16 07:16 07:16 WBC 10.4 RBC 4.07 L Hgb 13.2 D Hct 39.0 MCV 96 MCH 32.4 H MCHC 33.8 RDW 15.3 H Plt Count 296 MPV 8.0 Neut % (Auto) 63.6 Lymph % (Auto) 27.0 [place] % (Auto) 8.3 Eos % (Auto) 0.8 Baso % (Auto) 0.3 Absolute Neuts (auto) 6.55 Absolute Lymphs (auto) 2.81 Sodium 142 Potassium 4.2 Chloride 101 Carbon Dioxide 33 Anion Gap 12 BUN 18 H Creatinine 0.90 Estimated GFR (MDRD) > 60 Glucose 98 Calculated Osmolality 275 Calcium 9.8 Magnesium 1.80 - Assessment/Plan (1) Atypical chest pain Acute R07.89 - OTHER CHEST PAIN Present on Admission: Yes Comment/Plan: Stress dobutamine echo done today showed no evidence of ischemia. She does have some degree of apical hypertrophy. I think this is what responsible for changes on the electrocardiogram. The [place] at this point will be to managing her blood pressure best we can. Will follow her up in the office. There is no arrhythmias identified on the telemetry. (2) Coronary artery disease Chronic I25.10 - ATHSCL HEART DISEASE OF [place] CORONARY ARTERY W/O ANG PCTRS Present on Admission: Yes [place] artery [place] heart with unstable angina I25.110 - Atherosclerotic heart disease of [place] coronary artery with unstable angina pectoris Comment/Plan: Again stress test done today was negative. Will continue present management. The [place] is risk factor modifications. 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 (4) Dyslipidemia Chronic E78.5 - HYPERLIPIDEMIA, UNSPECIFIED Present on Admission: Yes Comment/Plan: Continue with atorvastatin. (5) Essential hypertension Acute I10 - ESSENTIAL (PRIMARY) HYPERTENSION Comment/Plan: Blood pressure appears to be reasonably controlled. Continue present management. (6) Smoking Chronic F17.200 - NICOTINE DEPENDENCE, UNSPECIFIED, UNCOMPLICATED Present on Admission: Yes Comment/Plan: Obviously she must quit. - Plan Patient came with atypical chest pain. Dobutamine stress echo done today showed no evidence of ischemia. She does have some degree of apical hypertrophy. I think that what was responsible for changes on the electrocardiogram. Will follow her up in the office.
--- NOTE | 2016-07-29 10:35 | PCM.DCS92 ---
- Final/Secondary Discharge Diagnosis (1) Acute bacterial bronchitis Acute J20.8 - ACUTE BRONCHITIS DUE TO OTHER SPECIFIED ORGANISMS; B96.89 - OTH BACTERIAL AGENTS THE CAUSE OF DISEASES CLASSD ELSWHR Present on Admission: Yes Comment: Patient be admitted into observation status will start Augmentin 875 p.o. twice daily and monitor her respiratory status closely. Will also add Mucinex. Add Tussionex as well (2) Atypical chest pain Acute R07.89 - OTHER CHEST PAIN Present on Admission: Yes Comment: Chest pain certainly is atypical in the sensation has been present since Saturday. SHe does not get aggravated by exercise. It is not relieved by rest. Given changes on the EKG with normal biological markers observation is called for. Will continue aspirin and Lovenox monitor cavity act enzymes and plan stress testing prior to discharge. (3) Coronary artery disease Chronic I25.10 - ATHSCL HEART DISEASE OF [place] CORONARY ARTERY W/O ANG PCTRS Present on Admission: Yes [place] artery [place] heart with unstable angina I25.110 - Atherosclerotic heart disease of [place] coronary artery with unstable angina pectoris Comment: Rule out for myocardial infarction follow serial enzymes and EKGs. 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 (5) Dyslipidemia Chronic E78.5 - HYPERLIPIDEMIA, UNSPECIFIED Present on Admission: Yes Comment: Continue home medication regimen and monitor closely check lipid profile in a.m.. (6) Smoking Chronic F17.200 - NICOTINE DEPENDENCE, UNSPECIFIED, UNCOMPLICATED Present on Admission: Yes Comment: Patient is an active smoker. (7) Tobacco abuse Chronic Z72.0 - TOBACCO USE Present on Admission: Yes Comment: Smoking cessation counseling for less than 6 minutes. Discharge Disposition: Home Discharge Condition: Improved Cognitive Discharge Status: Unimpaired Fuctional Discharge Status: Independent Physician Follow up/Referrals: Francisco Duarte MD [Primary Care Provider] - One Week Home Medications / New Prescriptions: New Amoxicillin/Clavulanate [place]. [Augmentin] 875 mg PO BIDWM #10 tablet Metoprolol Tartrate 25 mg PO BID #60 tablet Continue Levothyroxine [Synthroid, Levoxyl] 25 mcg PO DAILY Omeprazole 40 mg PO DAILY Aripiprazole [Abilify] 15 mg PO DAILY Latanoprost 1 drop OU HS Losartan/Hydrochlorothiazide [Hyzaar 50-12.5 Tablet] 1 tab PO DAILY Clopidogrel Bisulfate [Plavix] 75 mg PO DAILY Cholecalciferol (Vitamin D3) [D3 Dots] 2,000 unit PO DAILY Aspirin [Aspirin EC] 81 mg PO DAILY [place]-3 Fatty Acids/Fish Oil [Fish Oil 1,000 mg Capsule] 2 cap PO BID Montelukast Sodium [Singulair] 10 mg PO DAILY Atorvastatin Calcium [Lipitor] 80 mg PO HS Discontinued Cetirizine HCl 10 mg PO DAILY PRN PRN Reason: ALLERGIES Laboratory Results - last 24 hr 07/29/16 07/29/16 07:16 07:16 WBC 10.4 RBC 4.07 L Hgb 13.2 D Hct 39.0 MCV 96 MCH 32.4 H MCHC 33.8 RDW 15.3 H Plt Count 296 MPV 8.0 Neut % (Auto) 63.6 Lymph % (Auto) 27.0 [place] % (Auto) 8.3 Eos % (Auto) 0.8 Baso % (Auto) 0.3 Absolute Neuts (auto) 6.55 Absolute Lymphs (auto) 2.81 Sodium 142 Potassium 4.2 Chloride 101 Carbon Dioxide 33 Anion Gap 12 BUN 18 H Creatinine 0.90 Estimated GFR (MDRD) > 60 Glucose 98 Calculated Osmolality 275 Calcium 9.8 Magnesium 1.80 O2 Device: Room Air Additional Instructions: Follow up with primary care for bronchitis. Return to ED for any new or worsening symptoms. Diet at Discharge: Heart Healthy, Low Salt Activity: No Restrictions, Limited, No Heavy Lifting Call Office For: Worsening Symptoms, Fever over 100.5, Pain Uncontrolled By Meds Discontinue use of:: Alcohol, All Illegal Substances, All Types of Tobacco - DC Summary Notes HPI/Notes: Patient is a 61 years old woman with past medical history significant for longstanding hypertension, diabetes, dyslipidemia, smoking, coronary artery disease in 2014 she had stent to circumflex artery. She presented to the hospital with chief complain fever chills starting Saturday which was 3 days ago she also complained of having persistent chest heaviness since Saturday. There is also some shortness of breath cough with yellowish sputum. She also noted some swelling of lower extremities. My evaluation was called to address issue of chest pain as well as abnormal electrocardiogram. Her ability to exercise is limited because of shortness of breath that she gets easily. Hospital Course Note:: Discharge summary on patient named MORTEZA JORDAN [place] [facility]16 by Edith Godinez MD. Date of discharge is []. 61-year-old female admitted to our facility with acute bacterial bronchitis and chest pains. She was admitted to the hospital treated for bronchitis with antibiotics Mucinex and Tussionex. She has improved significantly. She underwent stress testing and found to have a negative dobutamine stress echo today. At this point she has reached maximum benefit of hospitalization. She is stable for discharge home. Total Time: 45 min Code: 32504 (>30min.) - Physical Exam Vital Signs: Last Vital Signs Temp 98.0 F 07/29/16 04:00 Pulse 53 L 07/29/16 07:40 Resp 18 07/29/16 04:00 BP 145/67 07/29/16 04:00 Pulse Ox 94 07/29/16 04:00 Oxygen Pulse Oxygen Saturation 94 O2 Device Room Air Oxygen Flow Rate Fraction of Inspired Oxygen ( FIO2) Constitutional: No apparent distress, Alert Oriented to: Time, Person, Place - HEENT Head: Normal Eye: negative: Conjunctival Injection, Scleral Icterus Oropharynx: negative: Drooling TMJ: Normal Nose: No Symptoms Reported - Respiratory/Cardiovascular Respiratory: Rhonchi. negative: Accessory Muscle Use, Rales, Retractions, Tachypnea, Wheezes, Excursion Cardiovascular: Normal (RRR , Normal S1, S2. No murmurs, rubs, or gallops. PMI non-displaced. Carotids: no carotid bruits. No bradycardia or tachycardia. DP pulses 2+ bilaterally.) - GI Auscultation: Normal Palpation: Normal Tenderness: Non tender - Musculoskeletal Back: Normal Extremities: Pedal Edema (bilat feet), Pedal Pulse, Radial Pulse - Integumentary Lymphatics: Normal (No lymph node swelling or pain.) - Neurologic Mood Description: Normal Thought: Coherent Perception: Normal - Other Exam Other Exam Findings: Laboratory Results - last 24 hr 07/29/16 07/29/16 07:16 07:16 WBC 10.4 RBC 4.07 L Hgb 13.2 D Hct 39.0 MCV 96 MCH 32.4 H MCHC 33.8 RDW 15.3 H Plt Count 296 MPV 8.0 Neut % (Auto) 63.6 Lymph % (Auto) 27.0 [place] % (Auto) 8.3 Eos % (Auto) 0.8 Baso % (Auto) 0.3 Absolute Neuts (auto) 6.55 Absolute Lymphs (auto) 2.81 Sodium 142 Potassium 4.2 Chloride 101 Carbon Dioxide 33 Anion Gap 12 BUN 18 H Creatinine 0.90 Estimated GFR (MDRD) > 60 Glucose 98 Calculated Osmolality 275 Calcium 9.8 Magnesium 1.80
[2016-07-29] MEDS: ENOXAPARIN 80 MG/0.8 ML PFS SQ SCH (10:42)
[2016-07-29] MEDS: TUSSIONEX 5 ML ORAL SYRINGE PO SCH (10:43)
[2016-07-29] MEDS: CLOPIDOGREL 75 MG TAB PO SCH (10:43)
[2016-07-29] MEDS: ARIPIPRAZOLE 10 MG TAB PO SCH (10:43)
[2016-07-29] MEDS: METOPROLOL TARTRATE 25 MG TAB PO SCH (10:43)
[2016-07-29] MEDS: OMEGA-3-ACID ETHYL ESTERS 1000 MG CAP PO SCH (10:46)
[2016-07-29] MEDS: AMOXICILLIN/CLAVULANATE 875 MG TAB PO SCH (10:46)
[2016-07-29] MEDS: CHOLECALCIFEROL 1000 UNITS TAB PO SCH (10:47)
[2016-07-29] MEDS: LEVOTHYROXINE 25 MCG (0.025 MG) TAB PO SCH (10:47)
[2016-07-29] MEDS: GUAIFENESIN-DEXTROMETHORPHAN LA TAB PO SCH (10:47)
[2016-07-29 10:48] VITALS: BP 130/58; PULSE 64; TEMP 98.1
--- NOTE | 2016-07-29 10:54 | CAPUECHO2 ---
INDICATION: CHEST PAIN HEIGHT: 160.0 cm (5 ft 3.0 in) WEIGHT: 70.8 kg (156.0 lbs) BP: 134/70 BSA: 1.658666 m FINDINGS ------- Protocol:The patient received intravenous dobutamine beginning at 10 mcg/kg/min, increasing to 20mcg /kg/min and 40mcg/kg/min in 3 minute stages. Heart rate and blood pressure:Max Heart Rate: 118 bpm % of Max Predicted Heart Rate: 75% Rest Hear t Rate: 57 bpm Rest BP: 134/70 mmhg Max BP: 171/60 mmhg Mets Achieved:1.00 Target HR: 133 bpm Reason for stopping:The test was stopped at the patient's request. Exercise tolerance:Pt did not exercise. ELECTROCARDIOGRAM: Resting ECG:Sinus rhythm, RBBB, T inversion on multiple leads. Post exercise ECG:In response to stress, the ECG showed no diagnostic ST-T wave changes, T inversion normalized. Hemodynamic response:There were normal blood pressure and heart rate responses to stress. ECHOCARDIOGRAM: Resting echo findings:There is normal global left ventricular contractility. Over all left ventricular systolic function is normal with, an EF between 60 - 65 %. Dobutamine stress echo findings:The left ventricle size is normal. Overall left ventricular systol ic function is normal with, an EF between 65 - 70 %. Peak exercise echo findings:Echo images were acquired at peak stress which demonstrated appropriate augmentation of all left ventricular segments with slight decrease in cavity size. CONCLUSIONS 1. No ECG or 2D echocardiographic evidence of inducible ischemia to achieved workload. Electronically Signed By: Paulino Klein MD -- Electronically Signed On: 10:53:28
--- NOTE | 2016-07-30 14:52 | CAPUEKG ---
[place], [place] Test Date: 2016-07-28 Pat Name: MORTEZA JORDAN Department: Room: 441 Gender: Female Spring Encaser: LUI DURAND: Requested By: Order Number: Reading MD: Ravinder Nguyễn Measurements Intervals [place] Rate: 60 P: 51 [place]: 136 QRS: 71 QRSD: 114 T: 240 QT: 474 QTc: 474 Interpretive Statements Normal sinus rhythm Right bundle branch block T wave abnormality, consider inferolateral ischemia No change from prior tracing. Abnormal ECG Electronically Signed On 07-30-16 14:51:24 EST by Ravinder Nguyễn <[id number] [id number]
== END 2016-07-29 10:35 | disposition home or self-care (01) ==
LOC: ED 07:26 → PCU 12:29
PROVIDERS: ADMIT Hospitalist; ATTEND Hospitalist
DX: J20.8 Acute bronchitis due to other specified organisms (principal); R07.89 Other chest pain; I25.10 Atherosclerotic heart disease of native coronary artery without angina pectoris; E11.9 Type 2 diabetes mellitus without complications; I10 Essential (primary) hypertension; E78.5 Hyperlipidemia, unspecified; F17.200 Nicotine dependence, unspecified, uncomplicated; Z79.82 Long term (current) use of aspirin; Z79.899 Other long term (current) drug therapy; R06.02 Shortness of breath
CPT/HCPCS: 36415; 71020; 80048; 80053; 80061; 82947; 83735; 83880; 84484; 85025; 87040; 87804; 93005; 93306; 93350; 96365; 96366; 96372; 99284; 99406; A4216; G0378; J0696; J1250; J1650; J1940; J3490; J7060; Q9957